=== PATIENT | male | born 1980 | race Asian ===

== ENCOUNTER 2018-08-07 14:24 | Emergency (ER) | payer OTHER ==
[~2018-08-07] VITALS: Ht 170.2 cm; Wt 66.4 kg
[2018-08-07 14:28] VITALS: BP 145/97
[2018-08-07] MEDS: NACL 0.9% 1,000 ML IV SCH (16:10)
[2018-08-07] MEDS: ONDANSETRON 4 MG/2 ML VIAL IVP ONE (16:11)
[2018-08-07] MEDS: MORPHINE SULFATE 4 MG/ML SYR IVP ONE ×2 (16:11→17:29)
[2018-08-07 16:25] LABS: BASOPHILS % (AUTO) 0.3 % (0.0-2.0); EOSINOPHILS % (AUTO) 0.3 % (0.0-4.0); HEMATOCRIT 48.3 % (36-52); HEMOGLOBIN 15.5 g/dL (12.0-18.0); LYMPHOCYTES # (AUTO) 1.1 K/uL (2.0-11.5); LYMPHOCYTES % (AUTO) 9.1 % (20.5-51.1); MEAN CORPUSCULAR HEMOGLOBIN 28 pg (27-31); MEAN CORPUSCULAR HGB CONC 32 g/dL (33-37); MEAN CORPUSCULAR VOLUME 85.4 fL (80-94); MONOCYTES # (AUTO) 0.2 K/uL (0.8-1.0); MONOCYTES % (AUTO) 1.9 % (1.7-9.3); NEUTROPHILS # (AUTO) 10.7 K/uL (1.8-7.7); NEUTROPHILS % (AUTO) 88.4 % (42.2-75.2); PLATELET COUNT (AUTO) 298 K/uL (140-450); RED BLOOD CELL COUNT(AUTO) 5.66 MIL/uL (4.20-6.10); RED CELL DISTRIBUTION WIDTH 12.6 % (11.6-13.7); WHITE BLOOD COUNT (AUTO) 12.1 K/uL (4.8-10.8)
[2018-08-07 16:47] LABS: ANION GAP 17.2 (8-16); CARBON DIOXIDE 25.2 mmol/L (21-32); POTASSIUM 3.4 mmol/L (3.5-5.1)
[2018-08-07 17:15] LABS: APPEARANCE,URINE CLEAR (CLEAR); BILIRUBIN,URINE NEGATIVE (NEGATIVE); BLOOD, URINE NEGATIVE (NEGATIVE); COLOR,URINE YELLOW (YELLOW); LEUKOCYTE ESTERASE ,URINE NEGATIVE (NEGATIVE); NITRITE, URINE NEGATIVE (NEGATIVE); UGLUCOSE NEGATIVE (NEGATIVE)
[2018-08-07] MEDS: METOCLOPRAMIDE 10 MG/2 ML INJ VIAL IVP ONE (17:21)
[2018-08-07] MEDS: diphenhydrAMINE 50 MG/ML VIAL IVP ONE (17:24)
[2018-08-07 17:32] LABS: ALBUMIN 4.8 g/dL (3.4-5.0)
[2018-08-07 19:25] VITALS: BP 136/83
== END 2018-08-07 19:25 | disposition home or self-care (01) ==
LOC: MED 14:24
DX: R11.2 Nausea with vomiting, unspecified (principal); R10.813 Right lower quadrant abdominal tenderness
CPT/HCPCS: 36415; 74177; 80053; 81003; 83690; 85025; 96374; 96375; 96376; 99284; J1200; J2270; J2405; J2765; J7030; Q9967